=== PATIENT | female | born 1965 | race Asian ===

== ENCOUNTER 2020-12-15 07:39 | Emergency (ER) | payer BC ==
[~2020-12-15 07:39] MED LIST: ANTIVERT25 MG PO; CLARITIN10 MG PO; LEVOFLOXACIN500 MG PO; ZOFRAN4 MG PO
== END 2020-12-15 08:59 | disposition home or self-care (01) ==
LOC: ED 07:39
DX: R51.9 Headache, unspecified (principal); Z20.822 Contact with and (suspected) exposure to COVID-19; R50.9 Fever, unspecified

== ENCOUNTER 2022-10-16 08:07 | Emergency (ER) | payer BC ==
[~2022-10-16] VITALS: Wt 65.8 kg
[2022-10-16 09:27] LABS: HEMATOCRIT 43.3 % (37.0-47.0); MEAN CELL VOLUME 89.6 fl (81.0-99.0); MEAN CORPUSCULAR HGB CONC 33.5 g/dl (33.0-37.0); MEAN PLATELET VOLUME 9.4 fl (9.6-12.3); PLATELET COUNT AUTOMATED 247 10*3/uL (130-400); RED BLOOD COUNT 4.83 10*6/uL (4.10-5.10); RED CELL DISTRI WIDTH 12.1 % (0-14.5); WHITE BLOOD COUNT 4.2 10*3/uL (4.8-10.8)
[2022-10-16 09:35] LABS: MANUAL DIFF REFLEX YES
[2022-10-16 09:39] LABS: ACT PARTIAL THROMBO TIME 30.2 SECONDS (20.0-32.1); INTERNATIONAL NORM RATIO 0.9 (2.0-3.5)
[2022-10-16 09:55] LABS: ATYPICAL LYMPHS 4 % (0-0); BASOPHILS 2 % (0-1); POLYCHROMASIA SLIGHT; TOTAL CELLS COUNTED 100 #CELLS
[2022-10-16 09:56] LABS: OVALOCYTES FEW; PLATELET SUFFICIENCY NORMAL (NORMAL)
[2022-10-16 09:58] LABS: ALKALINE PHOSPHATASE 88 U/L (46-116); BUN 5 mg/dl (9-23); CHLORIDE 103 mmol/L (98-107); LIPASE 37 U/L (12-53); POTASSIUM 3.7 mmol/L (3.4-5.1); SGPT/ALT 36 U/L (10-49); TOTAL PROTEIN 7.8 gm/dL (6.0-8.0)
[2022-10-17] MEDS ORDERED: REGLAN10 M1 PO (21:11)
[2022-10-17] MEDS ORDERED: CIPRO250 MG PO (21:11)
== END 2022-10-16 11:06 | disposition home or self-care (01) ==
LOC: ED 08:07
PROVIDERS: Emergency Medicine
DX: U07.1 COVID-19 (principal)

== ENCOUNTER 2022-10-17 19:24 | Emergency (ER) | payer BC ==
[~2022-10-17] VITALS: Ht 165.1 cm; Wt 65.8 kg
[2022-10-17 20:16] LABS: BASO % 0.2 % (0.0-1.0); EOS % 0.5 % (1.0-4.0); HEMATOCRIT 42.6 % (37.0-47.0); LYMPH # 1.9 10*3/uL (1.3-4.4); LYMPH % 32.9 % (27.0-41.0); MEAN CORPUSCULAR HGB 29.3 pg (27.0-31.0); MEAN CORPUSCULAR HGB CONC 33.6 g/dl (33.0-37.0); MEAN PLATELET VOLUME 9.4 fl (9.6-12.3); MONO # 0.4 10*3/uL (0.1-1.0); NEUT # 3.4 10*3/uL (2.3-7.9); NEUT % 59.2 % (47.0-73.0); PLATELET COUNT AUTOMATED 259 10*3/uL (130-400); RED BLOOD COUNT 4.88 10*6/uL (4.10-5.10); RED CELL DISTRI WIDTH 12.1 % (0-14.5); WHITE BLOOD COUNT 5.7 10*3/uL (4.8-10.8)
[2022-10-17 20:17] LABS: MEAN CELL VOLUME 87.3 fl (81.0-99.0)
[2022-10-17 20:24] LABS: BILIRUBIN Negative (Negative); BLOOD Trace-Lysed (Negative); CLARITY Clear (Clear); COLOR Yellow (Yellow); GLUCOSE Negative (Negative); KETONE Negative (Negative); LEUKO ESTERASE 1+ (Negative); NITRITE Negative (Negative); SPECIFIC GRAVITY <= 1.005 (1.001-1.030); UROBILINOGEN 0.2 E.U./dl (0.0-1.0)
[2022-10-17 20:30] LABS: ALKALINE PHOSPHATASE 97 U/L (46-116); BUN 6 mg/dl (9-23); CHLORIDE 100 mmol/L (98-107); LIPASE 41 U/L (12-53); POTASSIUM 3.6 mmol/L (3.4-5.1); SGPT/ALT 37 U/L (10-49); TOTAL PROTEIN 8.4 gm/dL (6.0-8.0)
[2022-10-17 20:53] LABS: BACTERIA 1+; RBC 0-2 rbc/hpf (0-2)
[2022-10-17] MEDS ORDERED: CIPRO250 MG PO (21:11)
[2022-10-17] MEDS ORDERED: REGLAN10 M1 PO (21:11)
== END 2022-10-17 21:19 | disposition home or self-care (01) ==
LOC: ED 19:24
PROVIDERS: Physician Assistant Medical
DX: A08.4 Viral intestinal infection, unspecified (principal); N39.0 Urinary tract infection, site not specified